=== PATIENT | female | born 2000 | race Caucasian/White ===

== ENCOUNTER 2024-12-31 19:39 | Emergency (ER) | payer OTHER, BC, SELFPAY ==
--- OUTSIDE RECORDS SUMMARY | 2024-12-20 15:45 | XMS_ITS | Encounter Summary ---
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 Phone Melodie Fry MD Primary Care Provider [phone] Encounter Details DateTypeDepartmentCare Team (Latest Contact Info)Virszhnueql36/04/2025 3:45 PM ESTOffice Visit [facility] [address] [place] [address] Melodie Fry MD [address] [facility] [place] [address] Moderate episode of recurrent major depressive disorder(HCC) (Primary Dx); Poor motivation; Attention deficit hyperactivity disorder (ADHD), predominantly inattentive type; Anxiety and depression; BMI 23.0-23.9, adult; Sludge in gallbladder; Iron deficiency; Hypovitaminosis D; ASCUS with positive high risk HPV cervical; Acne vulgaris Social History Tobacco UseTypesPacks/DayYears UsedDateSmoking Tobacco: NeverSmokeless Tobacco: Never Tobacco Cessation:Counseling Given: Yes Alcohol UseStandard Drinks/WeekCommentsNo0 (1 standard drink = 0.6 oz pure alcohol)Sexually ActiveBirth ControlPartnersCommentsNeverSubstance UseTypes Use/WeekCommentsNoCommentsNoSex and Gender InformationValueDate Recorded Sex Assigned at BirthNot on fileLegal LbjOfffkr56/01/2013 8:39 PM EDTGender IdentityNot on fileSexual OrientationNot on filedocumented as of this encounter Last Filed Vital Signs Vital SignReadingTime TakenCommentsBlood Jhpcdnwi599/7011 3:39 PM EST Kpeyq9365 3:39 PM BHFBlvfxpspeol74.3 ??C (97.4 ??F)12/20/2024 3:39 PM ESTRespiratory Sixv9765 3:39 PM ESTOxygen Okxgmbvqqo444%12/20/2024 3:39 PM ESTInhaled Oxygen Concentration--Epkiof56 kg (130 lb)12/20/2024 3:39 PM EST Khpueg084.5 cm (5' 2.01 )12/20/2024 3:39 PM ESTBody Mass Index23.7712/20/2024 3:39 PM ESTdocumented in this encounter Progress Notes * Melodie Fry MD - 12/20/2024 3:45 PM EST Mariza is present today for f/u Pt has no concerns Med list reviewed No med refills needed at this time Review of systems. Constitutional, cardiovascular, respiratory, GI, , skin, musculoskeletal, neurologic, psychiatric, endocrine, skin, lymphatic, denies any new concerns. On examination. Vitals reviewed. Well-appearing. Pleasant to talk to. Not in distress. Eyes, PERRL, EOMI, Conjunctiva appears to be within normal limits. Eyelids and eyelashes appear to be within normal limits. HEENT, Oral mucosa, teeth, gums, lips appear to be within normal limits. Respiratory, No distress, no retractions, no flaring, no cyanosis. Air entry is fair. No prolonged exhalation. No wheezes, No crackles could be heard. CVS, No cyanosis S1 and S2 normal, regular rate and rhythm, No elevated JVD. Peripheral pulses well palpable. No edema could be appreciated. Abdomen, Soft, Musculoskeletal, Full range of movements of joints as far as could be appreciated. Muscle bulk, tone, power appears to be within normal range. Neurologic, Patient is awake, alert, and oriented to time person and place. Psychiatry, Insight and judgment intact. Recent and remote memory intact. Pleasant mood and affect. BP 122/70 (BP Location: Left upper arm, Patient Position (For Orthostatics): Sitting (if unable to stand) for 1 minute) Pulse 98 Temp 97.4 ??F (36.3 ??C) (Temporal) Resp 18 Ht 5' 2.01 (1.575m) Wt 130 lb (59 kg) SpO2 100% BMI 23.77 kg/m?? ICD-10-CM 1. Moderate episode of recurrent major depressive disorder(HCC) F33.1 2. Poor motivation R68.89 3. Attention deficit hyperactivity disorder (ADHD), predominantly inattentive type F90.0 4. Anxiety and depression F41.9 F32.A 5. BMI 23.0-23.9, adult Z68.23 6. Sludge in gallbladder K82.8 7. Iron deficiency E61.1 8. Hypovitaminosis D E55.9 9. ASCUS with positive high risk HPV cervical R87.610 R87.810 10. Acne vulgaris L70.0 Susanne is here and I do appreciate that she came back and we wanted to adjust and understand the situation with the medications. She is taking her Paxil in the morning consistently since the last timebut she has not noticed much of a difference in her personality getting irritated thinking too muchabout the things and not sleeping well. It seems like the major issue is she wants to have a good sleep and then she wants to see how she is doing. So let her stay put Susanne with what ever you are doing with your Paxil keep it in the morning keep other medications the weight is now the 1 that I am adding though it is 2 times a day but you are not starting as 2 times a day you will take it in the evening if you are taking it in the evening you are able to rest well sleep well at night then see how it goes tomorrow because if you are very sleepy next day this means you have to take early evening so by the time next day comes you are not as sleepy but understand only start with half a pill do not start with full tablet okay only half a tablet strictly at bedtime though it will say 1 pill 2 times a day but do not do it only half a pill at bedtime or early evening depending on how you are though I must confess for 1 to 2 weeks you will still be very sleepy in the daytime but as time goes on you will be better once your sleepiness has gotten better then I want you to move to gradually 1 pill 3 times a day slowly maybe you can make 1 pill in the evening half a pill in the morning if you say no if I take the morning pill I get very groggy then just say take 1 pill in the evening so this is getting side crying easily getting irritatedetc. once we have quality sleep I want to see how you do okay do not stop the medications you are already taking No orders of the defined types were placed in this encounter. Current Outpatient Medications: busPIRone (Buspar) 15 mg tablet, Take 1 tablet by mouth 2 (two) times daily, Disp: 60 tablet, Rfl: 1 dextroamphetamine-amphetamine (Adderall XR) 10 mg 24 hr capsule, Take 1 capsule by mouth every morning for 30 days, Disp: 30 capsule, Rfl: 0 dextroamphetamine-amphetamine (Adderall XR) 25 mg 24 hr capsule, Take 1 capsule by mouth every morning for 30 days, Disp: 30 capsule, Rfl: 0 PARoxetine (PaxiL) 20 mg tablet, Take 1 tablet by mouth in the morning., Disp: 30 tablet, Rfl: 1 Next Appointment: 12/29/2024 Past Medical History: Diagnosis Date Abdominal pain ADHD (attention deficit hyperactivity disorder) Closed displaced fracture of proximal phalanx of left thumb 07/09/2015 Cough 09/07/2015 Fractures Menorrhagia with irregular cycle 09/07/2015 Patient Active Problem List Diagnosis Acne vulgaris Iron deficiency Sludge in gallbladder Hypovitaminosis D Attention deficit hyperactivity disorder (ADHD), predominantly inattentive type Moderate episode of recurrent major depressive disorder(HCC) BMI 23.0-23.9, adult Anxiety and depression ASCUS with positive high risk HPV cervical Poor motivation Past Surgical History: Procedure Laterality Date ADENOIDECTOMY HAND SURGERY Right 07/10/15 and 07/2815 TONSILLECTOMY Family History Problem Relation Name Age of Onset Anemia Mother Autism Brother Seizures Brother Social History Socioeconomic History Marital status: Single Spouse name: Not on file Number of children: Not on file Years of education: Not on file Highest education level: Not on file Occupational History Not on file Tobacco Use Smoking status: Never Smokeless tobacco: Never Substance and Sexual Activity Alcohol use: No Alcohol/week: 0.0 standard drinks of alcohol Drug use: No Sexual activity: Never Other Topics Concern Not on file Social History Narrative Not on file Social Drivers of Health Financial Resource Strain: Not on file Food Insecurity: Not on file Transportation Needs: Not on file Physical Activity: Not on file Stress: Not on file Social Connections: Not on file Intimate Partner Violence: Not on file Housing Stability: Not on file Outpatient Medications as of 12/20/2024 Medication Sig busPIRone (Buspar) 15 mg tablet Take 1 tablet by mouth 2 (two) times daily dextroamphetamine-amphetamine (Adderall XR) 10 mg 24 hr capsule Take 1 capsule by mouth every morning for 30 days dextroamphetamine-amphetamine (Adderall XR) 25 mg 24 hr capsule Take 1 capsule by mouth every morning for 30 days PARoxetine (PaxiL) 20 mg tablet Take 1 tablet by mouth in the morning. No Known Allergies PHQ as of 11/22/24 Over the last 2 weeks, how often have you been bothered by any of the following problems? 1. Little interest or pleasure in doing things 3 2. Feeling down, depressed, or hopeless 3 PHQ-2 Total Score 6 3. Trouble falling or staying asleep, or sleeping too much 2 4. Feeling tired or having little energy 3 5. Poor appetite or overeating 2 6. Feeling bad about yourself - or that you are a failure or have let yourself or your family down 2 7. Trouble concentrating on things, such as reading the newspaper or watching television 3 8. Moving or speaking so slowly that other people could have noticed. Or the opposite - being so fidgety or restless that you have been moving around a lot more than usual 2 9. Thoughts that you would be better off , or of hurting yourself in some way 0 PHQ-9 Total Score 20 If you checked off any problems, how difficult have these problems made it for you to do your work,take care of things at home, or get along with other people? Very difficult I encouraged the patient to cut down portion sizes. Try to avoid second helpings. After finishing meal, try to avoid snacking. Cut down on pop and candies and cakes cookies etc. When not hungry try not to eat. Try to do 200 minutes of moderate intensity exercise over the course of the week. This exercise should include aerobic as well as muscle strengthening as I explained. A portion or this entire note was dictated using dragon naturally speaking and may not be entirely accurate. documented in this encounter Plan of Treatment DateTypeDepartmentCare Team (Latest Contact Info)Jmxysyukiyl65/16/2025 4:45 PM ESTOffice Visit [facility], [address] [place] [address] Melodie Fry MD [address] [place] [address] 01/02/2026 1:45 PM ESTOffice Visit [facility], [address] [place] [address] Melodie Fry MD [address] [place] [address] documented as of this encounter Visit Diagnoses Diagnosis Moderate episode of recurrent major depressive disorder(HCC)- Primary Poor motivation Other general symptoms Attention deficit hyperactivity disorder (ADHD), predominantly inattentive type Anxiety and depression Dysthymic disorder BMI 23.0-23.9, adult Sludge in gallbladder Other specified disorder of gallbladder Iron deficiency Iron deficiency anemia, unspecified Hypovitaminosis D Unspecified vitamin D deficiency ASCUS with positive high risk HPV cervical Acne vulgaris Other acne documented in this encounter Additional Health Concerns Resolved ProblemsNoted DateDiagnosed DateResolved DateRecurrent suppurative otitis media of both earsClosed displaced fracture of proximal phalanx of left thumbNumbness and tingling in left handNew daily persistent giqxnnsn09 AssessmentNoted TimePHQ-9 Depression Total Score: 4:10 PM EDT documented as of this encounter Care Teams Team MemberRelationshipSpecialtyStart DateEnd Date Melodie Fry MD [address] [place] [address] PCP - GeneralINTERNAL MEDICINE11/03/22documented as of this encounter
--- OUTSIDE RECORDS SUMMARY | 2024-12-29 15:00 | XMS_ITS | Encounter Summary ---
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 Role Phone Melodie Fry MD Primary Care Provider [phone] Encounter Details DateTypeDepartmentCare Team (Latest Contact Info)Vqfkkjvcxmx69/13/2025 3:00 PM ESTOffice Visit [facility] [address] [place] [address] Melodie Fry MD [address] [facility] [place] [address] Annual physical exam (Primary Dx); Sludge in gallbladder; Poor motivation; Moderate episode of recurrent major depressive disorder(HCC); Iron deficiency; Hypovitaminosis D; Attention deficit hyperactivity disorder (ADHD), predominantly inattentive type; ASCUS with positive high risk HPV cervical; Anxiety and depression; Acne vulgaris; BMI 23.0-23.9, adult; Need for vaccination; Body mass index (BMI) of 22.0 to 22.9 in adult; Pap smear, as part of routine gynecological examination; Screening examination for venereal disease Social History Tobacco UseTypesPacks/DayYears UsedDateSmoking Tobacco: NeverSmokeless Tobacco: Never Tobacco Cessation:Counseling Given: Yes Alcohol UseStandard Drinks/WeekCommentsNo0 (1 standard drink = 0.6 oz pure alcohol)Sexually ActiveBirth ControlPartnersCommentsYesInjection, Oral ContraceptiveMaleSubstance UseTypesUse/WeekCommentsNoCommentsNoSex and Gender InformationValueDate RecordedSex Assigned at BirthNot on fileLegal Sex Mwdshl5308/16/2012 8:39 PM EDTGender IdentityNot on fileSexual OrientationNot on filedocumented as of this encounter Last Filed Vital Signs Vital SignReadingTime TakenCommentsBlood Vmwlzkgh644/80102/29/2024 2:56 PM EST Dslla447012/29/2024 2:56 PM FEHFqqqxwexhvk53.6 ??C (97.8 ??F)12/29/2024 2:56 PM ESTRespiratory Xxvv045902/29/2024 2:56 PM ESTOxygen Fnjiagqzhq09%12/29/2024 2:56 PM ESTInhaled Oxygen Concentration--Qcmlut29 kg (130 lb)12/29/2024 2:56 PM EST Ewvvkj192.5 cm (5' 2.01 )12/29/2024 2:56 PM ESTBody Mass Index23.7712/29/2024 2:56 PM ESTdocumented in this encounter Plan of Treatment DateTypeDepartmentCare Team (Latest Contact Info)Eozmufjwoox47/16/2025 4:45 PM ESTOffice Visit [facility] [address] [place] [address] Melodie Fry MD [address] [place] [address] 01/02/2026 1:45 PM ESTOffice Visit [facility] [address] [place] [address] Melodie Fry MD [address] [place] [address] NameTypePriorityAssociated DiagnosesDate/TimeThinprep TIS PAP Reflex HPV mRNA E6/E7, Chlamydia/N. GonorrhoeaePathology and CytologyRoutine ASCUS with positive high risk HPV cervical Acne vulgaris Pap smear, as part of routine gynecological examination Screening examination for venereal disease 12/29/2024 4:37 PM ESTdocumented as of this encounter Visit Diagnoses Diagnosis Annual physical exam- Primary Routine general medical examination at a health care facility Sludge in gallbladder Other specified disorder of gallbladder Poor motivation Other general symptoms Moderate episode of recurrent major depressive disorder(HCC) Iron deficiency Iron deficiency anemia, unspecified Hypovitaminosis D Unspecified vitamin D deficiency Attention deficit hyperactivity disorder (ADHD), 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 Anxiety and depression Dysthymic disorder Acne vulgaris Other acne BMI 23.0-23.9, adult Need for vaccination Need for prophylactic vaccination and inoculation against unspecified single disease Body mass index (BMI) of 22.0 to 22.9 in adult Pap smear, as part of routine gynecological examination Screening for malignant neoplasm of the cervix Screening examination for venereal disease documented in this encounter Additional Health Concerns Resolved ProblemsNoted DateDiagnosed DateResolved DateRecurrent suppurative otitis media of both earsClosed displaced fracture of proximal phalanx of left thumbNumbness and tingling in left handNew daily persistent ruxyhjbn40 AssessmentNoted TimePHQ-9 Depression Total Score: 4:10 PM EDT documented as of this encounter Care Teams Team MemberRelationshipSpecialtyStart DateEnd Date Melodie Fry MD [address] [place] [address] PCP - GeneralINTERNAL MEDICINE11/03/22documented as of this encounter
[2024-12-31 19:48] VITALS: BP 135/91; PULSE 102; O2SAT 97; BMI 23.8
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
[2024-12-31 20:07] VITALS: TEMP 37.1
[2024-12-31] MEDS: KETOROLAC TROMETHAMINE 60 MG/2 ML VIAL IM (20:08)
[2024-12-31] MEDS: ACETAMINOPHEN 500 MG TABLET 1000 MG PO (20:08)
--- OUTSIDE RECORDS SUMMARY | 2024-12-31 20:33 | XMS_ITS | Clinical Summary ---
Author Organization [facility] [place] [address] Care Team Providers Care Glass Inserter Name Role Phone Melodie Fry MD Primary Care Provider [phone] Allergies No known active allergies Medications MedicationSigDispense QuantityRefillsLast FilledStart DateEnd DateStatus busPIRone (Buspar) 15 mg tablet Take 1 tablet by mouth 2 (two) times daily 60 tablet 5Active dextroamphetamine-amphetamine (Adderall XR) 10 mg 24 hr capsule Indications:Attention deficit hyperactivity disorder (ADHD), predominantly inattentive typeTake 1 capsule by mouth every morning for 30 days 30 capsule 5Active dextroamphetamine-amphetamine (Adderall XR) 25 mg 24 hr capsule Indications:Attention deficit hyperactivity disorder (ADHD), predominantly inattentive typeTake 1 capsule by mouth every morning for 30 days 30 capsule 5Active QUEtiapine (SEROqueL) 50 mg tablet Take 1 tablet by mouth 2 (two) times daily for 30 days 60 tablet /5Active PARoxetine (PaxiL) 20 mg tablet Take 1 tablet by mouth in the morning. 30 tablet /6Active PARoxetine (PaxiL) 20 mg tablet Take 1 tablet by mouth in the morning. 30 tablet 264322/Discontinued(Reorder) Active Problems ProblemNoted DateDiagnosed DatePoor ulunfhekcs96/22/2025SCUS with positive high risk HPV /19/2025nxiety and iarbonahbx55/01/2024nnual physical exam 12/25/2022MI 23.0-23.9, adult12/10/2022ttention deficit hyperactivity disorder (ADHD), predominantly inattentive type11/17/2022Moderate episode of recurrent major depressive disorder(HCC)11/17/2022Iron qptxkmcmyc53/08/2017Sludge in veisehukoib27/08/2017Hypovitaminosis D007/24/2016Acne kibtkroc36/24/2016 Resolved Problems ProblemNoted DateDiagnosed DateResolved DateNew daily persistent headache bdominal pain, LUQSore citlcy5105/26/2016 07/21/2016Side painEncounter for routine child health examination without abnormal sbareivf98Menorrhagia with irregular cycleCoughClosed displaced fracture of proximal phalanx of left thumbNumbness and tingling in left handMenstrual cycle oeyjxoo6604/23/2015 07/09/2015Attention deficit disorder (ADD), child, with csoltknfjztsg75/08/2016 11/17/2022Recurrent suppurative otitis media of both ears Encounters DateTypeDepartmentCare IrjoGbphuhyaulc40/13/2025 3:00 PM ESTOffice Visit [facility] [address] [place] [address] Melodie Fry MD Annual physical exam (Primary Dx); Sludge in [...] routine gynecological examination; Screening examination for venereal offlgen2712/20/2024 3:45 PM ESTOffice Visit [facility] [address] [place] [address] Melodie Fry MD Moderate episode of recurrent major depressive disorder(HCC) (Primary Dx); Poor motivation; Attention deficit hyperactivity disorder (ADHD), predominantly inattentive type; Anxiety and depression; BMI 23.0-23.9, adult; Sludge in gallbladder; Iron deficiency; Hypovitaminosis D; ASCUS with positive high risk HPV cervical; Acne uempghzz38/07/2025 4:00 PM EDTOffice Visit [facility] [address] [place] [phone] Melodie Fry MD Attention deficit hyperactivity disorder (ADHD), predominantly inattentive type (Primary Dx); Anxiety and depression; Moderate episode of recurrent major depressive disorder(HCC); Poor motivation; BMI 23.0-23.9, adult; Falling hair11/07/2024 12:45 PM EDTOffice Visit [facility] [address] [place] [phone] Melodie Fry MD Attention deficit hyperactivity disorder (ADHD), predominantly inattentive type (Primary Dx); Acne vulgaris; Anxiety and depression; BMI 22.0-22.9, adult; Moderate episode of recurrent major depressive disorder(HCC); Poor tjpfhifyhl18/15/2011PCP/Clinic Changefrom Last 3 Months Immunizations ImmunizationAdministration DatesNext PzaKTbX3910/11/2007,03/20/2003DTaP/Hep B/IPV 05/23/2003,01/16/2003DTaP/HiB/04/20045803VRU1 - JHZJPJNP890/12/2023,12/25/2022 Hepatitis A (Peds/Adolescent)07/02/2009,10/11/2007Hepatitis B (Peds/Adolescent) 2002HiB PRP-OMP (PedvaxHIB) Conjugate Sbglbrc9411/28/2003,03/20/2003, 01/16/2003IPV10/11/2007,03/20/2003Influenza Vaccine (IIV3) (6 months+)02/13/2012 Influenza Vaccine IIV3 (PF) (6 months+)12/29/2024Influenza Vaccine IIV4 (6 Months+)10/27/2016Influenza Vaccine IIV4 (PF) - 6 months and older12/25/2022MCV4 Meningococcal Rnuoofsmg18/03/1774OAD2510/11/2007,11/28/2003Meningococcal B Recombinant Vaccine (for patients 10-25 yrs)12/28/2023,12/25/2022Meningococcal Polysaccharide (A, C, Y, W-135) TT Inktixvgh76/09/2023neumococcal Conjugate 7-Xvyjic7202/19/2004,09/14/2003,03/20/2003,01/16/2003Tdap03/21/2014Varicella 10/11/2007,11/28/2003 Family History Medical HistoryRelationCommentsAutismBrotherSeizuresBrotherLearning disabilities Maternal AuntHeart diseaseMaternal GrandmotherAnemiaMother 1DepressionMother 2 Mental illnessMother 2Miscarriages / StillbirthsMother 2RelationStatusComments BrotherFatherAliveMaternal AuntAliveMaternal GrandmotherAliveMother 1Mother 2 Social History Tobacco UseTypesPacks/DayYears UsedDateSmoking Tobacco: NeverSmokeless Tobacco: Never Tobacco Cessation:Counseling Given: Yes Alcohol UseStandard Drinks/WeekCommentsNo0 (1 standard drink = 0.6 oz pure alcohol)Sexually ActiveBirth ControlPartnersCommentsYesInjection, Oral ContraceptiveMaleSubstance UseTypesUse/WeekCommentsNoCommentsNoSex and Gender InformationValueDate RecordedSex Assigned at BirthNot on fileLegal Sex Vwzpbv0308/16/2012 8:39 PM EDTGender IdentityNot on fileSexual OrientationNot on file Last Filed Vital Signs Vital SignReadingTime TakenCommentsBlood Cfayssvs283/8011/ 2:56 PM EST Zyoze8588 2:56 PM AJNIapzflzpktg04.6 ??C (97.8 ??F)12/29/2024 2:56 PM ESTRespiratory Fzjl681702/29/2024 2:56 PM ESTOxygen Jdzckijfkc71%12/29/2024 2:56 PM ESTInhaled Oxygen Concentration--Tyadhg02 kg (130 lb)12/29/2024 2:56 PM EST Lvyxrp246.5 cm (5' 2.01 )12/29/2024 2:56 PM ESTBody Mass Index23.7712/29/2024 2:56 PM EST Plan of Treatment DateTypeDepartmentCare Team (Latest Contact Info)Runcrmortje50/16/2025 4:45 PM ESTOffice Visit [facility] [address] [place] [address] Melodie Fry MD [address] [place] [address] 01/02/2026 1:45 PM ESTOffice Visit [facility], [address] [place] [address] Melodie Fry MD [address] [place] [address] NameTypePriorityAssociated DiagnosesDate/TimeThinprep TIS PAP Reflex HPV mRNA E6/E7, Chlamydia/N. GonorrhoeaePathology and CytologyRoutine ASCUS with positive high risk HPV cervical Acne vulgaris Pap smear, as part of routine gynecological examination Screening examination for venereal disease 12/29/2024 4:37 PM ESTNameTypePriorityAssociated DiagnosesOrder ScheduleSurgical Pathology (NOT FOR PLACENTA)Pathology and CytologyRoutineOnce for 1 Occurrences starting 07/25/2016 until 07/25/2016NameTypePriorityAssociated DiagnosesOrder ScheduleAmbulatory referral to Obstetrics / GynecologyOutpatient ReferralRoutine ASCUS with positive high risk HPV cervical Abnormal Papanicolaou smear of cervix with positive human papilloma virus (HPV) test Ordered: 4Ambulatory referral to NephrologyOutpatient ReferralRoutine Elevated serum creatinine Ordered: 01/22/2023mbulatory referral to General SurgeryOutpatient Referral Routine Sludge in gallbladder Abdominal pain, LUQ Generalized abdominal pain Ordered: 08/01/2016Ambulatory referral to GastroenterologyOutpatient Referral Routine Acne vulgaris Attention deficit disorder (ADD), child, with hyperactivity Abdominal pain, LUQ Ordered: 07/21/2016Ambulatory referral to PsychologyOutpatient ReferralRoutine Behavior Problem In Pediatric Patient Ordered: 01/25/2015Health MaintenanceDue DateLast DoneCommentsEye Exam2020 HPV Vaccine (3 - 3-dose series)/12/2023, 12/25/2022OVID-19 Vaccine ( season)2024hlamydia Jpdnrttvs84/, 12/31/2016Depression Follow-up Plan/Tobacco Use Screening /early Physical/Wellness Exam/, 12/28/2023, 12/25/2022, Additional history existsCervical Cancer Screening /12/2023Zoster Vaccines (1 of 2)2052RSV Immunization 60+ or (1 - 1-dose 75+ series)2077Hepatitis B VaccinationCompleted 05/23/2003, 01/16/2003, 2002HIB QltbzggbVmvcjuftb28/03/2005, 11/28/2003, 03/20/2003, Additional history existsPneumococcal Immunization 0-49 YearsAged Out02/19/2004, 09/14/2003, 03/20/2003, Additional history existsNo longer eligible based on patient's age to complete this topicIPV VaccinesCompleted 10/11/2007, 05/23/2003, 03/20/2003, Additional history existsMMR Vaccines Mjkdtyulc67/25/2008, 11/28/2003Varicella JxnbydozPkslddcnd08/25/2008, 11/28/2003 Hepatitis A SaskdmrsFjppwkmsu19/17/2010, 10/11/2007Meningococcal ACWY Vaccine Aged Out12/25/2022, 03/21/2014No longer eligible based on patient's age to complete this topicDepression HmduqwBelkrrwrf24/07/2025, 07/21/2016Influenza NighgktBfaplqefu16/13/2025, 12/25/2022, 10/27/2016, Additional history exists Procedures Procedure NamePriorityDate/TimeAssociated DiagnosisCommentsVITAMIN B12/FOLATE, SERUM PANEL ([facility])Dagrpkd0012/21/2024 4:22 PM EST Falling hair IRON, TIBC AND FERRITIN PANEL ([facility])Inbgopj1512/21/2024 4:22 PM EST Falling hair RVUTpetvxh86/05/2025 4:22 PM EST Falling hair VITAMIN D 25 XBFLXHHPwtdhoa11/05/2025 4:22 PM EST Falling hair LIPID VYKOBFzqoqqr79/05/2025 4:22 PM EST Falling hair COMPREHENSIVE METABOLIC PANEL - THRKOMPvgmlim19/05/2025 4:22 PM EST Falling hair CBC AND CWWBCJQFXOBILtwbykq40/05/2025 4:22 PM EST Falling hair EXTERNAL LAB VJPHFR0612/21/2024THINPREP TIS PAP REFLEX HPV MRNA E6/E7, CHLAMYDIA/N.AZYZBzzhqkv58/19/2025 10:54 AM EDT ASCUS with positive high risk HPV cervical Screening examination for venereal disease Screening for chlamydial disease THINPREP TIS PAP & HPV MRNA E6/E7 REFLEX HPV 16,18/45 ([facility])Hjrnjjy5712/28/2023 2:37 PM EST Screening examination for venereal disease Routine gynecological examination from Last 3 Months or Most Recently Relevant to Health Maintenance Results * (ABNORMAL) Comprehensive Metabolic Panel (OCMPAN) (12/21/2024 4:22 PM EST) ComponentValueRef RangeTest MethodAnalysis TimePerformed AtPathologist YxxplxhmuFasrsja03021 - 139 mg/dLQUEST [facility] WOOD DALEComment: ? Non-fasting reference interval BUN6(L)7 - 25 mg/dLQUEST DIAGNOSTICS WOOD DALECreatinine0.98(H)0.50 - 0.96 mg/dL [facility] WOOD ULNPYQWX76> OR = 60 mL/min/1.20b8YTSSJ DIAGNOSTICS WOOD DALEBUN / Creat Ratio66 - 22 (calc)[facility] NEREYDA WATQNabpkr611690 - 146 mmol/LQUEST [facility] NEREYDA DALEPotassium4.23.5 - 5.3 mmol/LQUEST [facility] NEREYDA IBSFIyymtgwb16231 - 110 mmol/LQUEST [facility] NEREYDA VMKEBH25641 - 32 mmol/LQUEST [facility]AG[facility] NEREYDA DALECalcium9.48.6 - 10.2 mg/dLQUEST DIAGNOST[facility] NEREYDA DALEProtein Total7.06.1 - 8.1 g/dLQUEST DIAGNOST[facility] NEREYDA DALEAlbumin4.63.6 - 5.1 g/dLQUEST DIAGNOST[facility] NEREYDA DALEGlobulin2.41.9 - 3.7 g/dL (calc)[facility] NEREYDA DALEA/G Ratio1.91.0 - 2.5 (calc)[facility] NEREYDA SINGLETONE Bilirubin Total0.60.2 - 1.2 mg/dLQUEST DIAGNOSTICS NEREYDA DALEAlkaline Phosphatase 5131 - 125 U/LQUEST DIAGNOST[facility] NEREYDA DALEAST (SGOT)1510 - 30 U/LQUEST [facility] NEREYDA DALEALT (SGPT)96 - 29 U/LQUEST [facility]AG[facility] NEREYDA DALESpecimen (Source)Anatomical Location / LateralityCollection Method / VolumeCollection TimeReceived TimeBloodBLOOD SPECIMEN / Venmcbu6912/21/2024 4:22 PM EST12/21/2024 4:22 PM EST Narrative [facility] - 12/22/2024 6:58 AM EST FASTING:NO FASTING: NO Resulting Agency Comment Performing Organization Information: ?Site ID: [id number] ?Name: Tracee Finn-Nereyda Wyatt ?Address: [address] [place] [address] [place] [address] ?Director: Yves López Authorizing ProviderResult TypeResult StatusPyuridia SOL BLOOD ORDERABLES Final ResultPerforming OrganizationAddressCity/State/ZIP CodePhone Number [facility] [address] [place] [address] [facility] NEREYDA WYATT * Vitamin B12/Folate, Serum Panel ([facility]) (12/21/2024 4:22 PM EST)ComponentValue Ref RangeTest MethodAnalysis TimePerformed AtPathologist SignatureVitamin B-12 914727 - 1,100 pg/mLTalkspace MANIEComment: Please Note: Although the reference range for vitamin B12 is 200-1100 pg/mL, it has been reported that between 5 and 10% of patients with values between 200 and 400 pg/mL may experience neuropsychiatric and hematologic abnormalities due to occult B12 deficiency; less than 1% of patients with values above 400 pg/mL will have symptoms. Folate9.8ng/mLFutureGen Capital NEREYDA SINGLETONEComment: ? Reference Range Low: <3.4 ? Borderline: ?3.4-5.4 Normal: >5.4 Specimen (Source)Anatomical Location / LateralityCollection Method / Volume Collection TimeReceived TimeBloodBLOOD SPECIMEN / Nmckiuv5512/21/2024 4:22 PM EST 12/21/2024 4:22 PM EST Narrative [facility] - 12/22/2024 7:20 AM EST FASTING:NO FASTING: NO Resulting Agency Comment Performing Organization Information: ?Site ID: ?Name: CommunityForce[facility]reyda Wyatt ?Address: [address] [place] [phone] ?Director: Yves López Authorizing ProviderResult TypeResult StatusPyuridia Fry MDLAB BLOOD ORDERABLES Final ResultPerforming OrganizationAddressCity/State/ZIP CodePhone Number [facility] [address] [place] [address] [facility] NEREYDA WYATT * (ABNORMAL) Iron, TIBC and Ferritin Panel ([facility]) (12/21/2024 4:22 PM EST) ComponentValueRef RangeTest MethodAnalysis TimePerformed AtPathologist YzzwxmdlqUsyv1090 - 190 mcg/dLFutureGen Capital NEREYDA FRIENDron Binding Capacity 622816 - 450 mcg/dL (calc)[facility] KAVYA% Iron Ssdpioddwf0118 - 45 % (calc)[facility] NEREYDA SINGLETONEFerritin9(L)16 - 154 ng/mLQUEST [facility] ENREYDA SINGLETONESpecimen (Source)Anatomical Location / Laterality Collection Method / VolumeCollection TimeReceived TimeBloodBLOOD SPECIMEN / Hibmtdc5612/21/2024 4:22 PM EST12/21/2024 4:22 PM EST Narrative [facility] - 12/22/2024 6:58 AM EST FASTING:NO FASTING: NO Resulting Agency Comment Performing Organization Information: ?Site ID: ?Name: CommunityForceNereyda Wyatt ?Address: [address] [place] [address] [place] [address] ?Director: Yves López Authorizing ProviderResult TypeResult StatusPunaandrez SOL BLOOD ORDERABLES Final ResultPerforming OrganizationAddressCity/State/ZIP CodePhone Number [facility] [address] [place] [address] [facility] NEREYDA WYATT * Vitamin D 25 Hydroxy (12/21/2024 4:22 PM EST)ComponentValueRef RangeTest MethodAnalysis TimePerformed AtPathologist SignatureVitamin D 25-Iamksvm5001 - 100 ng/mLQUEST e|tab NEREYDA SINGLETONEComment: Vitamin D Status ? 25-OH Vitamin D: Deficiency: <20 ng/mL Insufficiency: ? 20 - 29 ng/mL Optimal: > or = 30 ng/mL For 25-OH Vitamin D testing on patients on D2-supplementation and patients for whom quantitation of D2 and D3 fractions is required, the QuestAssureD(TM) 25-OH VIT D, (D2,D3), LC/MS/MS is recommended: order code 09681 (patients >2yrs). See Note 1 Note 1 For additional information, please refer to http://education.Spinnakr/faq/AOP900 (This link is being provided for informational/ educational purposes only.) Specimen (Source)Anatomical Location / LateralityCollection Method / Volume Collection TimeReceived TimeBloodBLOOD SPECIMEN / Btjbuff8912/21/2024 4:22 PM EST 12/21/2024 4:22 PM EST Narrative [facility] - 12/22/2024 6:58 AM EST FASTING:NO FASTING: NO Resulting Agency Comment Performing Organization Information: ?Site ID: ?Name: Tracee Finn-Nereyda Wyatt ?Address: [address] [place] [address] [place] [address] ?Director: Yves López Authorizing ProviderResult TypeResult StatusPyuridia SOL BLOOD ORDERABLES Final ResultPerforming OrganizationAddressCity/State/ZIP CodePhone Number [facility] [address] [place] [address] [facility] NEREYDA WYATT * CBC And Differential (12/21/2024 4:22 PM EST)ComponentValueRef RangeTest MethodAnalysis TimePerformed AtPathologist SignatureWhite Blood Cell Count7.2 3.8 - 10.8 Thousand/uLQUEST DIAGNO[facility]ICS FRAMED DALERed Blood Cell Count4.133.80 - 5.10 Million/uLQUEST [facility]AG[facility]ICS WOOD DALEHemoglobin (HGB)12.511.7 - 15.5 g/dLQUEST DIAGNOSTICS FRAMED DALEHematocrit (HCT)37.135.0 - 45.0 %[facility] WOOD DALEMean Corpuscular Zbcrbc44.880.0 - 100.0 fLQUEST DIAGNOSTICS WOOD DALEMean Corpuscular Owkcjzjjqj47.327.0 - 33.0 pgQUEST DIAGNOSTICS WOOD DALEMean Corpuscular Hemoglobin Conc33.732.0 - 36.0 g/dLQUEST DIAGNOSTICS FRAMED DALEComment: For adults, a slight decrease in the calculated MCHC value (in the range of 30 to 32 g/dL) is most likely not clinically significant; however, it should be interpreted with caution in correlation with other red cell parameters and the patient's clinical condition. Red Cell Distribution Width13.611.0 - 15.0 %[facility] WOOD DALEPlatelet Zmehf178057 - 400 Thousand/uLQUEST DIAGNOSTICS WOOD DALEMean Platelet Volume9.8 7.5 - 12.5 fLQUEST DIAGNOSTICS WOOD DALESeg Absolute3,8591,500 - 7,800 cells/uL [facility] WOOD DALELymphocyte Absolute2,615539 - 3,900 cells/uLQUEST DIAGNOSTICS WOOD DALEMonocyte Hvwoyxih977829 - 950 cells/uLQUEST [facility]AG[facility] WOOD DALEEosinophil Jlkmwzdm68549 - 500 cells/uL[facility] NEREYDA SINGLETONE Basophil Ptflgxor848 - 200 cells/uL[facility] WOOD WQRCMyuvdlkyvd06.6% [facility] WOOD DOLIMehqbxxrjf31.2%[facility] WOOD MANIEMonocyte8.4 %[facility] WOOD DALEEosinophil1.4%[facility] WOOD DALEBasophil0.4 %[facility] WOOD DALESpecimen (Source)Anatomical Location / Laterality Collection Method / VolumeCollection TimeReceived TimeBloodBLOOD SPECIMEN / Npovwpj5612/21/2024 4:22 PM EST12/21/2024 4:22 PM EST Narrative [facility] - 12/22/2024 6:58 AM EST FASTING:NO FASTING: NO Resulting Agency Comment Performing Organization Information: ?Site ID: CB ?Name: [facility]-Nereyda Wyatt ?Address: [address] [place] [address] [place] [address] ?Director: Yves López Authorizing ProviderResult TypeResult StatusPyuridia Fry MDLAB BLOOD ORDERABLES Final ResultPerforming OrganizationAddressCity/State/ZIP CodePhone Number [facility] [address] [place] [address] [facility] NEREYDA WYATT * TSH (12/21/2024 4:22 PM EST)ComponentValueRef RangeTest MethodAnalysis Time Performed AtPathologist SignatureThyroid Stimulating Hormone1.37mIU/LQUEST [facility] NEREYDA SINGLETONEComment: ?Reference Range ? > or = 20 Years 0.40-4.50 ? Ranges ?First trimester ?0.26-2.66 ?Second trimester ?? 0.55-2.73 ?Third trimester ?0.43-2.91 Specimen (Source)Anatomical Location / LateralityCollection Method / Volume Collection TimeReceived TimeBloodBLOOD SPECIMEN / Fnxpikw0512/21/2024 4:22 PM EST 12/21/2024 4:22 PM EST Narrative [facility] - 12/22/2024 6:58 AM EST FASTING:NO FASTING: NO Resulting Agency Comment Performing Organization Information: ?Site ID: ?Name: Tracee Finn-Nereyda Wyatt ?Address: [address] [place] [address] [place] [address] ?Director: Yves López Authorizing ProviderResult TypeResult StatusPyuridia SOL BLOOD ORDERABLES Final ResultPerforming OrganizationAddressCity/State/ZIP CodePhone Number [facility] [address] [place] [address] [facility] NEREYDA WYATT * Lipid Panel (12/21/2024 4:22 PM EST)ComponentValueRef RangeTest MethodAnalysis TimePerformed AtPathologist SignatureCholesterol, Gxtli375<200 mg/dLQUEST CitySquares MANIEHDL Tkoxmqfltra66> OR = 50 mg/dLQUEST [facility] YIVRJqzpiollbedqk95<150 mg/dLQUEST The Pratley CompanyELDL Wstykadchwo48vh/dL (calc)[facility]ks[facility] MANIEComment: Reference range: <100 Desirable range <100 mg/dL for primary prevention; <70 mg/dL for patients with CHD or diabetic patients with > or = 2 CHD risk factors. LDL-C is now calculated using the Jay-Brittany calculation, which is a validated novel method providing better accuracy than the Friedewald equation in the estimation of LDL-C. Jay VILCHIS et al. JULIANA. 2013;310(19): 9452-7559 (http://education.Soft Machines.[employer]/faq/FCL797) Chol/Hdlc Ratio2.2<5.0 (calc)[facility] DALENon Hdl Lrhwardyext89 <130 mg/dL (calc)[facility] DALEComment: For patients with diabetes plus 1 major ASCVD risk factor, treating to a non-HDL-C goal of <100 mg/dL (LDL-C of <70 mg/dL) is considered a therapeutic option. Specimen (Source)Anatomical Location / LateralityCollection Method / Volume Collection TimeReceived TimeBloodBLOOD SPECIMEN / Llovpgn4312/21/2024 4:22 PM EST 12/21/2024 4:22 PM EST Narrative [facility] - 12/22/2024 6:58 AM EST FASTING:NO FASTING: NO Resulting Agency Comment Performing Organization Information: ?Site ID: ?Name: [facility]ole Wyatt ?Address: [address] [place], [place] [address] [address] ?Director: Yves López Authorizing ProviderResult TypeResult StatusMelodie Fry MDLAB BLOOD ORDERABLES Final ResultPerforming OrganizationAddressCity/State/ZIP CodePhone Number [facility] [address] [place] [address] TRACEE WYATT * EXTERNAL LAB RESULT (12/21/2024)Specimen (Source)Anatomical Location / LateralityCollection Method / VolumeCollection TimeReceived Time12/21/2024 Narrative Authorizing ProviderResult TypeResult StatusMelodie Fry MDPOINT OF CARE TEST ORDERABLESFinal Result * Thinprep TIS PAP Reflex HPV mRNA E6/E7, Chlamydia/N. Gonorrhoeae (07/04/2024 10:54 AM EDT)ComponentValueRef RangeTest MethodAnalysis TimePerformed At Pathologist SignatureClinical Information:Routine examQUEST DIAGNOSTICS - [facility]ITALUMBURGLmp:NA[facility] - SCHAUMBURGPrev. Pap:[facility] - [facility]PITALUMBURGPrev. Bx:[facility] - [facility]ITALUMBURGSource:CervixQUEST DIAGNOSTICS - [facility]ITALUMBURGStatement Of Adequacy:Satisfactory for evaluation. Endocervical/transformation zone component absent. Age and/or menstrual status not providedQUEST DIAGNOSTICS - SCHAUMBURGInterpretation/Result:Cytology Results: Negative for intraepithelial lesion or malignancy.[facility] - [facility]PITALUMBURGComment:This Pap test has been evaluated with computer assisted technology.[facility] HOSPITALURGCytotechnologist:TALISHA CT(ASCP) CT Screening Location: [address] [address] [facility] HOSPITALURGComment (Thinprep TIS &HPV)[facility] - [facility]PITALUMBURGComment: EXPLANATORY NOTE: The Pap is a screening test for cervical cancer. It is not a diagnostic test and is subject to false negative and false positive results. It is most reliable when a satisfactory sample, regularly obtained, is submitted with relevant clinical findings and history, and when the Pap result is evaluated along with historic and current clinical information. Chlamydia Trachomatis Rna, TmaNOT DETECTEDNOT DETECTEDQUEST e|tab - [facility]ITALUMBURGNeisseria Gonorrhoeae Rna, TmaNOT DETECTEDNOT DETECTEDFutureGen Capital - [place](Always Message)(Thinprep TIS Pap) ([facility] - [facility] H[facility]PITALUMBURGComment: The analytical performance characteristics of this assay, when used to test SurePath(TM) specimens have been determined by [employer]. The modifications have not been cleared or approved by the FDA. This assay has been validated pursuant to the CLIA regulations and is used for clinical purposes. For additional information, please refer to https://education.Palmaz Scientific/faq/GAJ713 (This link is being provided for information/ educational purposes only.) Specimen (Source)Anatomical Location / LateralityCollection Method / Volume Collection TimeReceived Time07/04/2024 10:54 AM EDT07/05/2024 7:23 AM EDT Narrative Resulting Agency Comment Performing Organization Information: ?Site ID: NE ?Name: [facility] ?Address: [address] [place] [phone] ?Director: Yves López Authorizing ProviderResult TypeResult StatusPunaandrez Fry MDPATHOLOGY/CYTOLOGY ORDERABLESFinal ResultPerforming OrganizationAddressCity/[facility] CodePhone Number [facility] [address] [place] [address] [employer] [place] * (ABNORMAL) Thinprep Tis PAP & HPV mRNAE6/E7 RFL HPV 16,18/45 ([employer]) (12/28/2023 2:37 PM EST)ComponentValueRef RangeTest MethodAnalysis Time Performed AtPathologist SignatureClinical Information:None givenQUEST DIAGNOSTICS - SCHAUMBURGLmp:NONE GIVENQUEST [facility] - [place]AUMBURGPrev. Pap: NONE GIVEN[facility] [place]UM[place]GPrev. Bx:NONE GIVENQUEST [facility] - SCHAUMBURGSource:CervixQUEST DIAGNOSTICS - SCHAUMBURGStatement Of Adequacy: Satisfactory for evaluation. Endocervical/transformation zone component present. Age and/or menstrual status not providedQUEST DIAGNOSTICS - SCHAUMBURGGeneral Categorization:Cytology Results: Epithelial Cell Abnormality (A)[employer] [facility] CooCooUMBURGInterpretation/Result:Atypical Squamous Cells of Undetermined Significance (ASC-US)(A)[facility] Hospitalment: This Pap test has been evaluated with computer assisted technology. Suggest clinical correlation and follow-up as clinically appropriateDAVIESS COMMUNITY HOSPITALCytotechnologist:KENZIE PAULSON(ASCP) CT Screening location: [address] [id number] COMMUNITY HOSPITALPathologist:Fam Batres M.D., Board Certified in Anatomic Pathology, Clinical Pathology, Specializing in Gynecological Pathology (electronic signature)[facility] (Thinprep TIS &HPV)[facility] Hospitalment: EXPLANATORY NOTE: The Pap is a screening test for cervical cancer. It is not a diagnostic test and is subject to false negative and false positive results. It is most reliable when a satisfactory sample, regularly obtained, is submitted with relevant clinical findings and history, and when the Pap result is evaluated along with historic and current clinical information. HPV mRNA E6/X3Utvicsnd(A)Not DetectedSullivan County Community Hospitalment: Methodology: Department Head-Mediated Amplification This assay detects E6/E7 viral messenger RNA (mRNA) from 14 high-risk HPV types (16,18,31,33,35,39,45,51,52,56,58,59,66,68). Cervical sources are required for HPV testing. If a vaginal source from a patient who has had a total hysterectomy with removal of cervix was submitted, please contact the testing laboratory for alternative testing options. For additional information, please refer to http://education.[employer]/faq/YMG615o8 (This link if provided for information/ educational purposes only.) Specimen (Source)Anatomical Location / LateralityCollection Method / Volume Collection TimeReceived Time12/28/2023 2:37 PM EST12/29/2023 9:09 AM EST Narrative Resulting Agency Comment Performing Organization Information: ?Site ID: [place] ?Name: [facility] ?Address: [address] [place] [id number] ?Director: Yves López Authorizing ProviderResult TypeResult StatusPunaandrez Fry MDPATHOLOGY/CYTOLOGY ORDERABLESFinal ResultPerforming OrganizationAddressCity/State/ZIP CodePhone Number [facility] [address] [place] [address] [facility] [place] from Last 3 Months or Most Recently Relevant to Health Maintenance Insurance * Guarantor: Lelo PRESTON TypeRelation to PatientDate of BirthPhoneBilling AddressPersonal/MfdpjjFiucjq97/25/1975 [address] [place] [address] MemberSubscriberPlan / Payer (Effective 2015-Present)Name:Mariza Preston Relation to Subscriber:SelfName:Mariza Preston Payer ID:[id number] Group ID:Not on file Type:Medicaid Address: [address] [address] [place] [address] MemberSubscriberPlan / Payer (Effective 2015-Present)Name:Mariza Preston Ludmila Relation to Subscriber:SelfName:Jorgedick Marizadain Keys Payer ID:[id number] Group ID:Not on file Type:Medicaid Address: [address] [address] [place] [address] Care Teams Team MemberRelationshipSpecialtyStart DateEnd Date Melodie Fry MD [address] [place] [id number] PCP - GeneralINTERNAL MEDICINE11/03/22"
--- OUTSIDE RECORDS SUMMARY | 2024-12-31 20:33 | XMS_ITS | Patient Health Record ---
Author Organization [facility] Address [address] [facility] [address] [place] [address] Care Team Providers Care Assurance Specialist Name Role Phone JETT PHILLIPS Unavailable [phone] Reason For Referral No Information Immunizations Vaccine Route Administration Date Status Comme nts [id number]-[id number]-AFC (Pediarix) VF Unknown 01/16/2003 Administered (Mig_M) Diphther ia, tetanus toxoids, acellular pertussis vaccine, Hepatitis B, and poliovirus vaccine, inactivated (GVpN-AcxN-PLZ), for intramuscular useAdminNotes: SYsH-AfuO-UZS (Pediarix) VFC Unknown 05/23/2003 Administered (Mig_M) Diphther ia, tetanus toxoids, acellular pertussis vaccine, Hepatitis B, and poliovirus vaccine, inactivated (BBaB-AhbN-IZN), for intramuscular useAdminNotes: HEP A (ped/adol) Private Unknown 10/11/2007 Administered (Mig_M) AdminNot es: zzz-DTaP (historical) Unknown 03/20/2003 Administered ( Mig_M) Diphtheria, tetanus toxoids, and acellular pertussis vaccine (DTaP), for intramuscular useAdminNotes: zzz-DTaP (historical) Unknown 10/11/2007 Administered ( Mig_M) Diphtheria, tetanus toxoids, and acellular pertussis vaccine (DTaP), for intramuscular useAdminNotes: gfo-POfO-Wza (TRIHIBIT) Unknown 02/19/2004 Administered (Mig_M) Diphther ia, tetanus toxoids, and acellular pertussis vaccine and Hemophilus influenza B vaccine (DTaP-Hib), for intramuscular useAdminNotes: zzz-HEP B (PED/ADOL) ENGERIX VFC Unknown 2002 Administered (Mig_M) Hepatiti s B vaccine, pediatric/adolescent dosage (3 dose schedule), for intramuscular useAdminNotes: zzz-IPV Unknown 03/20/2003 Administered (Mig_M) Marlo ovirus vaccine, inactivated, (IPV), for subcutaneous useAdminNotes: zzz-IPV Unknown 10/11/2007 Administered (Mig_M) Marlo ovirus vaccine, inactivated, (IPV), for subcutaneous useAdminNotes: zzz-MMR Unknown 11/28/2003 Administered (Mig_M) Constanza les, mumps and rubella virus vaccine (MMR), live, for subcutaneous or jet injection useAdminNotes: zzz-MMR Unknown 10/11/2007 Administered (Mig_M) Constanza les, mumps and rubella virus vaccine (MMR), live, for subcutaneous or jet injection useAdminNotes: zzz-PCV 7 Unknown 01/16/2003 Administered (Mig_M) Pneu mococcal conjugate vaccine, polyvalent, for children under five years, for intramuscular useAdminNotes: zzz-PCV 7 Unknown 03/20/2003 Administered (Mig_M) Pneu mococcal conjugate vaccine, polyvalent, for children under five years, for intramuscular useAdminNotes: zzz-PCV 7 Unknown 09/14/2003 Administered (Mig_M) Pneu mococcal conjugate vaccine, polyvalent, for children under five years, for intramuscular useAdminNotes: zzz-PCV 7 Unknown 02/19/2004 Administered (Mig_M) Pneu mococcal conjugate vaccine, polyvalent, for children under five years, for intramuscular useAdminNotes: zzz-PedVax Unknown 01/16/2003 Administered (Mig_M) Hemo philus influenza b vaccine (Hib), PRP-OMP conjugate (3 dose schedule), for intramuscular useAdminNotes: zzz-PedVax Unknown 03/20/2003 Administered (Mig_M) Hemo philus influenza b vaccine (Hib), PRP-OMP conjugate (3 dose schedule), for intramuscular useAdminNotes: zzz-PedVax Unknown 11/28/2003 Administered (Mig_M) Hemo philus influenza b vaccine (Hib), PRP-OMP conjugate (3 dose schedule), for intramuscular useAdminNotes: zzzVARICELLA Unknown 11/28/2003 Administered (Mig_M) Va ricella virus vaccine, live, for subcutaneous useAdminNotes: Lucia Unknown 10/11/2007 Administered (Mig_M) Va ricella virus vaccine, live, for subcutaneous useAdminNotes: Plan Of Treatment No Information
[2024-12-31] MEDS: BACITRACIN 0.9 GM PACKET 3 PACKET TOPICAL (20:53)
== END 2024-12-31 20:55 | disposition home or self-care (01) ==
PROVIDERS: Emergency Provider Emergency Medicine
DX: S61.402A Unspecified open wound of left hand, initial encounter (principal); S61.401A Unspecified open wound of right hand, initial encounter; S31.829A Unspecified open wound of left buttock, initial encounter; T14.8XXA Other injury of unspecified body region, initial encounter; V86.66XA Passenger of dirt bike or motor/cross bike injured in nontraffic accident, initial encounter
CPT/HCPCS: 73130; 96372; 99284; J1885